=== PATIENT | male | born 1995 | race Two or more races ===

== ENCOUNTER 2022-09-27 10:45 | Inpatient (IN) | payer OTHER ==
[~2022-09-27] VITALS: Ht 170.2 cm; Wt 58.1 kg
[2022-09-27] MEDS ORDERED: IV NS 0.9% 1,000 ML BAG IV ONE (11:30)
[2022-09-27 11:32] LABS: BASOPHILS % (AUTO) 0.2 % (0.0-2.0); EOSINOPHILS % (AUTO) 0.1 % (0.0-6.0); HEMATOCRIT 31 % (39-51); HEMOGLOBIN 10.5 g/dL (13.5-17.5); LYMPHOCYTES # (AUTO) 0.5 K/uL (0.8-4.8); LYMPHOCYTES % (AUTO) 7.5 % (20.0-44.0); MEAN CORPUSCULAR HGB CONC 33 g/dl (31.0-36.0); MEAN CORPUSCULAR VOLUME 73 fL (80-96); MONOCYTES # (AUTO) 0.8 K/uL (0.1-1.30); MONOCYTES % (AUTO) 12.9 % (2.0-12.0); NEUTROPHILS % (AUTO) 79.3 % (43.0-81.0); PLATELET COUNT (AUTO) 288 K/uL (150-450); WHITE BLOOD COUNT (AUTO) 6.2 K/uL (4.3-11.0)
[2022-09-27 11:55] LABS: CALCIUM, SERUM 8.5 mg/dL (8.5-10.1); CARBON DIOXIDE 27 mmol/L (21-32); CHLORIDE 86 mmol/L (98-107); CREATININE 0.9 mg/dL (0.6-1.3); GLUCOSE 120 mg/dL (74-106); POTASSIUM 3.6 mmol/L (3.5-5.1); SODIUM SERUM 121 mmol/L (136-145); UREA NITROGEN, BLOOD 12 mg/dL (7-18)
[2022-09-27 11:57] LABS: BILIRUBIN,URINE NEGATIVE (NEGATIVE); COLOR,URINE YELLOW (YELLOW); LEUKOCYTE ESTERASE ,URINE NEGATIVE (NEGATIVE); NITRITE, URINE NEGATIVE (NEGATIVE); PROTEIN,URINE 1+ mg/dl (NEGATIVE); UGLUCOSE NEGATIVE (NEGATIVE); UROBILINOGEN,URINE 0.2 EU/dL (0.2)
[2022-09-27 12:19] LABS: BACTERIA,URINE Rare /HPF (None Seen); SQUAMOUS EPITHELIAL CELL,UR Few /HPF (None Seen); WBC,URINE 0-2 /HPF (0-3)
[2022-09-27] MEDS ORDERED: CEFTRIAXONE 1GM BAG (ER ONLY) 50 ML IV ONE ×2 (12:27→17:04)
[2022-09-27 12:30] LABS: ALANINE AMINOTRANSFERASE 47 U/L (12-78); ALBUMIN 2.4 g/dL (3.4-5.0); ALKALINE PHOSPHATASE 76 U/L (46-116); ASPARTATE AMINOTRANSFERASE 23 U/L (15-37); BILIRUBIN,DIRECT 0.1 mg/dL (0.0-0.2); BILIRUBIN,TOTAL 0.2 mg/dL (0.2-1.0); LIPASE 55 U/L (73-393); TOTAL PROTEIN, SERUM 7.2 g/dL (6.4-8.2)
[2022-09-27] MEDS ORDERED: CEFTRIAXONE 1 G in IV D5W 50 ML IV ONE (12:30)
[2022-09-27 12:35] LABS: ALCOHOL, BLOOD < 3 mg/dL (0-0)
[2022-09-27] MEDS ORDERED: MAG HYDROX/AL HYDROX/SIMETH 30 ML UDC PO PRN (15:30)
[2022-09-27] MEDS: CEFTRIAXONE 1 G in IV D5W 50 ML IV SCH (15:30)
[2022-09-27] MEDS ORDERED: ONDANSETRON HCL/PF 4 MG/2 ML VIAL IVP PRN (15:30)
[2022-09-27] MEDS ORDERED: Z GUARD REMEDY 4 OZ OINT TP PRN (15:30)
[2022-09-27] MEDS: AZITHROMYCIN 500 MG in IV D5W 250 ML IV SCH (15:30)
[2022-09-27] MEDS ORDERED: ZOLPIDEM TARTRATE 5 MG TABLET PO PRN (15:30)
[2022-09-27] MEDS ORDERED: MAGNESIUM HYDROXIDE 30 ML UDC PO PRN (15:30)
[2022-09-27] MEDS ORDERED: AZITHROMYCIN 500 MG in IV D5W 250 ML IV SCH (17:30)
[2022-09-27] MEDS ORDERED: CEFTRIAXONE 1GM BAG (ER ONLY) 1 GM/50 ML PIGGYBACK IV ONE (17:30)
[2022-09-27 21:15] VITALS: BP 124/72
[2022-09-27] MEDS: IV NS 0.9% 1,000 ML IV PRN (22:22)
[2022-09-28] MEDS: ACETAMINOPHEN 325 MG TABLET PO PRN ×2 (00:04→19:59)
[2022-09-28 00:36] VITALS: BP 98/49
[2022-09-28 04:00] VITALS: BP 106/67
[2022-09-28 06:16] LABS: BASOPHILS % (AUTO) 0.4 % (0.0-2.0); EOSINOPHILS % (AUTO) 0.2 % (0.0-6.0); HEMATOCRIT 35 % (39-51); HEMOGLOBIN 11.1 g/dL (13.5-17.5); LYMPHOCYTES # (AUTO) 0.4 K/uL (0.8-4.8); MEAN CORPUSCULAR HGB CONC 32 g/dl (31.0-36.0); MEAN CORPUSCULAR VOLUME 75 fL (80-96); MONOCYTES # (AUTO) 0.7 K/uL (0.1-1.30); MONOCYTES % (AUTO) 12.7 % (2.0-12.0); NEUTROPHILS # (AUTO) 4.7 K/uL (1.8-8.9); NEUTROPHILS % (AUTO) 79.7 % (43.0-81.0); PLATELET COUNT (AUTO) 290 K/uL (150-450); RED BLOOD CELL COUNT(AUTO) 4.67 MIL/uL (4.5-6.0); WHITE BLOOD COUNT (AUTO) 5.9 K/uL (4.3-11.0)
[2022-09-28 06:58] LABS: CALCIUM, SERUM 8.1 mg/dL (8.5-10.1); CREATININE 0.9 mg/dL (0.6-1.3); MAGNESIUM 2.1 mg/dL (1.8-2.4); POTASSIUM 4.4 mmol/L (3.5-5.1)
[2022-09-28 09:12] VITALS: BP 112/69
[2022-09-28] MEDS: CEFTRIAXONE 1 G in IV D5W 50 ML IV SCH (14:44)
[2022-09-28] MEDS ORDERED: VANCOMYCIN 1 GM in IV D5W 250 ML IV ONE (15:30)
[2022-09-28] MEDS: AZITHROMYCIN 500 MG in IV D5W 250 ML IV SCH (15:41)
[2022-09-28 16:00] VITALS: BP 116/70
[2022-09-28] MEDS: IV NS 0.9% 1,000 ML IV PRN (17:00)
[2022-09-28] MEDS: VANCOMYCIN 1 GM in IV D5W 250 ML IV SCH (17:04)
[2022-09-28 20:00] VITALS: BP 123/73
[2022-09-29 04:00] VITALS: BP 111/64
[2022-09-29 07:42] LABS: CALCIUM, SERUM 7.3 mg/dL (8.5-10.1); CREATININE 0.8 mg/dL (0.6-1.3); POTASSIUM 3.2 mmol/L (3.5-5.1)
[2022-09-29 08:00] VITALS: BP 103/63
[2022-09-29] MEDS: FLUCONAZOLE (100 MG) 100 MG TABLET PO SCH (08:09)
[2022-09-29] MEDS: VANCOMYCIN 1 GM in IV D5W 250 ML IV SCH ×4 (08:12→18:08)
[2022-09-29] MEDS ORDERED: POTASSIUM CHLORIDE 20 MEQ TAB.PRT.SR PO ONE (10:00)
[2022-09-29 16:00] VITALS: BP 114/71
[2022-09-29] MEDS: AZITHROMYCIN 250 MG TABLET PO SCH (16:03)
[2022-09-29] MEDS: ACETAMINOPHEN 325 MG TABLET PO PRN (16:03)
[2022-09-29] MEDS: IV NS 0.9% 1,000 ML IV PRN (16:51)
[2022-09-29] MEDS: CEFTRIAXONE 1 G in IV D5W 50 ML IV SCH (16:54)
[2022-09-30] VITALS: BP 111/70
[2022-09-30] MEDS: VANCOMYCIN 1.25 GM in IV D5W 250 ML IV SCH ×3 (00:29→16:06)
[2022-09-30 05:53] LABS: BASOPHILS # (AUTO) 0.1 K/uL (0.0-0.2); BASOPHILS % (AUTO) 1.2 % (0.0-2.0); HEMATOCRIT 35 % (39-51); HEMOGLOBIN 11.2 g/dL (13.5-17.5); LYMPHOCYTES # (AUTO) 0.4 K/uL (0.8-4.8); MEAN CORPUSCULAR HGB CONC 32 g/dl (31.0-36.0); MEAN CORPUSCULAR VOLUME 76 fL (80-96); MONOCYTES # (AUTO) 0.4 K/uL (0.1-1.30); MONOCYTES % (AUTO) 8.8 % (2.0-12.0); NEUTROPHILS # (AUTO) 4.1 K/uL (1.8-8.9); PLATELET COUNT (AUTO) 275 K/uL (150-450); RED BLOOD CELL COUNT(AUTO) 4.65 MIL/uL (4.5-6.0)
[2022-09-30 06:08] LABS: CALCIUM, SERUM 8.1 mg/dL (8.5-10.1); CREATININE 0.6 mg/dL (0.6-1.3); POTASSIUM 4.4 mmol/L (3.5-5.1)
[2022-09-30] MEDS: FLUCONAZOLE (100 MG) 100 MG TABLET PO SCH (08:07)
[2022-09-30 08:57] VITALS: BP 122/69
[2022-09-30] MEDS ORDERED: IV Sodium Chloride 3% 500 ML 300 ML IV ONE (09:00)
[2022-09-30] MEDS: CEFTRIAXONE 1 G in IV D5W 50 ML IV SCH (14:53)
[2022-09-30 15:31] LABS: POTASSIUM 3.3 mmol/L (3.5-5.1)
[2022-09-30 16:00] VITALS: BP 117/70
[2022-09-30] MEDS: AZITHROMYCIN 250 MG TABLET PO SCH (16:09)
[2022-09-30] MEDS: ACETAMINOPHEN 325 MG TABLET PO PRN (17:00)
[2022-10-01] VITALS: BP 116/64
[2022-10-01] MEDS: VANCOMYCIN 1.25 GM in IV D5W 250 ML IV SCH ×2 (00:11→08:41)
[2022-10-01 05:09] VITALS: BP 123/69
[2022-10-01] MEDS: ACETAMINOPHEN 325 MG TABLET PO PRN ×2 (05:14→22:19)
[2022-10-01 08:00] VITALS: BP 144/72
[2022-10-01 08:37] LABS: CREATININE 0.7 mg/dL (0.6-1.3); POTASSIUM 3.2 mmol/L (3.5-5.1)
[2022-10-01] MEDS: FLUCONAZOLE (100 MG) 100 MG TABLET PO SCH (08:41)
[2022-10-01] MEDS: POTASSIUM CHLORIDE 20 MEQ TAB.PRT.SR PO SCH ×2 (10:49→12:10)
[2022-10-01] MEDS: VANCOMYCIN 1 GM in IV D5W 250 ML IV SCH ×2 (12:11→18:00)
[2022-10-01 14:07] LABS: *HIV-1 RNA BY PCR <20 copies/mL (.)
[2022-10-01] MEDS: AZITHROMYCIN 250 MG TABLET PO SCH (15:24)
[2022-10-01] MEDS: CEFTRIAXONE 1 G in IV D5W 50 ML IV SCH (15:24)
[2022-10-01 16:00] VITALS: BP 100/62
[2022-10-01] MEDS ORDERED: GADOTERATE MEGLUMINE 10 MMOL/20 ML VIAL IV ONE (19:29)
[2022-10-01 20:00] VITALS: BP 113/69
[2022-10-01] MEDS: IV NS 0.9% 1,000 ML IV PRN (20:19)
[2022-10-01] MEDS: PYRAZINAMIDE 500 MG TABLET PO SCH (20:29)
[2022-10-01] MEDS: ISONIAZID (300 MG) 300 MG TABLET PO SCH (20:30)
[2022-10-01] MEDS: PYRIDOXINE HCL 50 MG TABLET PO SCH (20:30)
[2022-10-01] MEDS: ETHAMBUTOL HCL (400 MG) 400 MG TABLET PO SCH (20:30)
[2022-10-01] MEDS: RIFAMPIN 300 MG CAPSULE PO SCH (20:31)
[2022-10-01] MEDS ORDERED: IV Sodium Chloride 3% 500 ML 300 ML IV ONE (22:00)
[2022-10-01] MEDS ORDERED: IV Sodium Chloride 3% 500 ML 500 ML IV ONE (22:26)
[2022-10-02 04:00] VITALS: BP 99/69
[2022-10-02 08:00] VITALS: BP 116/62
[2022-10-02] MEDS: RIFAMPIN 300 MG CAPSULE PO SCH (08:23)
[2022-10-02] MEDS: PYRIDOXINE HCL 50 MG TABLET PO SCH (08:23)
[2022-10-02] MEDS: PYRAZINAMIDE 500 MG TABLET PO SCH (08:24)
[2022-10-02] MEDS: FLUCONAZOLE (100 MG) 100 MG TABLET PO SCH (08:24)
[2022-10-02] MEDS: ISONIAZID (300 MG) 300 MG TABLET PO SCH (08:24)
[2022-10-02] MEDS: ETHAMBUTOL HCL (400 MG) 400 MG TABLET PO SCH (08:25)
[2022-10-02 09:09] LABS: CALCIUM, SERUM 7.9 mg/dL (8.5-10.1); CREATININE 0.7 mg/dL (0.6-1.3); POTASSIUM 3.8 mmol/L (3.5-5.1)
[2022-10-02] MEDS: VANCOMYCIN 1 GM in IV D5W 250 ML IV SCH ×2 (15:27→20:52)
[2022-10-02 16:00] VITALS: BP 119/60
[2022-10-02] MEDS: CEFTRIAXONE 1 G in IV D5W 50 ML IV SCH (16:24)
[2022-10-02] MEDS: AZITHROMYCIN 250 MG TABLET PO SCH (16:38)
[2022-10-02 17:22] LABS: CSF GLUCOSE 20 mg/dL (40-70); CSF PROTEIN 134.48 mg/dL (15-45)
[2022-10-02] MEDS: ACETAMINOPHEN 325 MG TABLET PO PRN (19:12)
[2022-10-02 20:00] VITALS: BP 110/62
[2022-10-02] MEDS: DEXAMETHASONE SOD PHOSPHATE 4 MG/ML VIAL IV SCH (20:53)
[2022-10-02] MEDS: PANTOPRAZOLE 40 MG TABLET.DR PO SCH (20:53)
[2022-10-02] MEDS: ACYCLOVIR IV 500 MG in IV D5W 100 ML IV SCH (20:53)
[2022-10-02] MEDS ORDERED: CEFTRIAXONE 2 G in IV D5W 50 ML IV SCH (21:00)
[2022-10-02] MEDS: CEFTRIAXONE 2 G in IV D5W 100 ML IV SCH (22:18)
[2022-10-02] MEDS ORDERED: IV NS 0.9% 1,000 ML IV ONE (22:30)
[2022-10-02] MEDS: IV NS 0.9% 1,000 ML IV PRN (22:44)
[2022-10-03] MEDS: VANCOMYCIN 1 GM in IV D5W 250 ML IV SCH ×2 (02:19→07:44)
[2022-10-03 04:00] VITALS: BP 119/61
[2022-10-03] MEDS: ACYCLOVIR IV 500 MG in IV D5W 100 ML IV SCH ×3 (04:28→21:55)
[2022-10-03 06:43] LABS: CALCIUM, SERUM 7.9 mg/dL (8.5-10.1); CREATININE 0.6 mg/dL (0.6-1.3); POTASSIUM 3.6 mmol/L (3.5-5.1)
[2022-10-03 08:00] VITALS: BP 93/53
[2022-10-03] MEDS: FLUCONAZOLE (100 MG) 100 MG TABLET PO SCH (08:24)
[2022-10-03] MEDS: ISONIAZID (300 MG) 300 MG TABLET PO SCH (08:24)
[2022-10-03] MEDS: DEXAMETHASONE SOD PHOSPHATE 4 MG/ML VIAL IV SCH (08:24)
[2022-10-03] MEDS: ENSURE ENLIVE 237 ML LIQUID (VANILLA) PO SCH (08:25)
[2022-10-03] MEDS: PANTOPRAZOLE 40 MG TABLET.DR PO SCH (08:25)
[2022-10-03] MEDS: ETHAMBUTOL HCL (400 MG) 400 MG TABLET PO SCH (08:25)
[2022-10-03] MEDS: RIFAMPIN 300 MG CAPSULE PO SCH (08:26)
[2022-10-03] MEDS: PYRIDOXINE HCL 50 MG TABLET PO SCH (08:26)
[2022-10-03 08:36] LABS: BASOPHILS % (AUTO) 0.2 % (0.0-2.0); HEMATOCRIT 38 % (39-51); HEMOGLOBIN 11.8 g/dL (13.5-17.5); LYMPHOCYTES # (AUTO) 0.3 K/uL (0.8-4.8); LYMPHOCYTES % (AUTO) 10.4 % (20.0-44.0); MEAN CORPUSCULAR HGB CONC 31 g/dl (31.0-36.0); MEAN CORPUSCULAR VOLUME 77 fL (80-96); MONOCYTES # (AUTO) 0.2 K/uL (0.1-1.30); MONOCYTES % (AUTO) 5.7 % (2.0-12.0); NEUTROPHILS # (AUTO) 2.5 K/uL (1.8-8.9); NEUTROPHILS % (AUTO) 83.7 % (43.0-81.0); PLATELET COUNT (AUTO) 246 K/uL (150-450); RED BLOOD CELL COUNT(AUTO) 4.86 MIL/uL (4.5-6.0)
[2022-10-03] MEDS: PYRAZINAMIDE 500 MG TABLET PO SCH (08:56)
[2022-10-03] MEDS: ACETAMINOPHEN 325 MG TABLET PO PRN ×2 (09:21→15:27)
[2022-10-03] MEDS: IV NS 0.9% 1,000 ML IV PRN (09:21)
[2022-10-03] MEDS: CEFTRIAXONE 2 G in IV D5W 100 ML IV SCH ×2 (09:29→22:56)
[2022-10-03] MEDS: VANCOMYCIN 1.25 GM in IV D5W 250 ML IV SCH ×2 (12:39→20:03)
[2022-10-03 16:00] VITALS: BP 84/51
[2022-10-03 20:00] VITALS: BP 102/57
[2022-10-04] MEDS: VANCOMYCIN 1.25 GM in IV D5W 250 ML IV SCH ×3 (03:08→19:35)
[2022-10-04 04:00] VITALS: BP 94/56
[2022-10-04] MEDS: ACYCLOVIR IV 500 MG in IV D5W 100 ML IV SCH ×3 (05:32→21:36)
[2022-10-04] MEDS: IV NS 0.9% 1,000 ML IV PRN (06:22)
[2022-10-04 07:11] LABS: ALBUMIN 1.7 g/dL (3.4-5.0); BILIRUBIN,DIRECT 0.1 mg/dL (0.0-0.2); BILIRUBIN,TOTAL 0.2 mg/dL (0.2-1.0); TOTAL PROTEIN, SERUM 5.4 g/dL (6.4-8.2)
[2022-10-04 07:43] LABS: CALCIUM, SERUM 7.9 mg/dL (8.5-10.1); CREATININE 0.7 mg/dL (0.6-1.3); POTASSIUM 3.3 mmol/L (3.5-5.1)
[2022-10-04 08:00] VITALS: BP 83/50
[2022-10-04 08:17] LABS: URIC ACID 5.3 mg/dL (2.6-7.2)
[2022-10-04] MEDS: PANTOPRAZOLE 40 MG TABLET.DR PO SCH (09:31)
[2022-10-04] MEDS: ETHAMBUTOL HCL (400 MG) 400 MG TABLET PO SCH (09:31)
[2022-10-04] MEDS: PYRIDOXINE HCL 50 MG TABLET PO SCH (09:31)
[2022-10-04] MEDS: FLUCONAZOLE (100 MG) 100 MG TABLET PO SCH (09:31)
[2022-10-04] MEDS: ISONIAZID (300 MG) 300 MG TABLET PO SCH (09:31)
[2022-10-04] MEDS: RIFAMPIN 300 MG CAPSULE PO SCH (09:33)
[2022-10-04] MEDS: DEXAMETHASONE SOD PHOSPHATE 4 MG/ML VIAL IV SCH (09:36)
[2022-10-04] MEDS: CEFTRIAXONE 2 G in IV D5W 100 ML IV SCH ×2 (09:38→22:42)
[2022-10-04] MEDS: PYRAZINAMIDE 500 MG TABLET PO SCH (09:38)
[2022-10-04] MEDS: ENSURE ENLIVE 237 ML LIQUID (VANILLA) PO SCH (09:57)
[2022-10-04] MEDS ORDERED: POTASSIUM CHLORIDE 20 MEQ TAB.PRT.SR PO SCH (10:00)
[2022-10-04 16:00] VITALS: BP 90/52
[2022-10-04] MEDS: CIPROFLOXACIN 0.3% OT SCH (16:59)
[2022-10-04 20:00] VITALS: BP 101/55
[2022-10-05] MEDS: IV NS 0.9% 1,000 ML IV PRN ×2 (00:13→20:12)
[2022-10-05] MEDS: VANCOMYCIN 1.25 GM in IV D5W 250 ML IV SCH ×3 (03:36→20:02)
[2022-10-05 04:00] VITALS: BP 105/50
[2022-10-05] MEDS: ACYCLOVIR IV 500 MG in IV D5W 100 ML IV SCH ×3 (05:32→21:22)
[2022-10-05 06:00] LABS: EOSINOPHILS % (AUTO) 0.1 % (0.0-6.0); HEMATOCRIT 32 % (39-51); HEMOGLOBIN 10.5 g/dL (13.5-17.5); LYMPHOCYTES # (AUTO) 0.5 K/uL (0.8-4.8); LYMPHOCYTES % (AUTO) 7.4 % (20.0-44.0); MEAN CORPUSCULAR HGB CONC 33 g/dl (31.0-36.0); MEAN CORPUSCULAR VOLUME 75 fL (80-96); MONOCYTES % (AUTO) 8.7 % (2.0-12.0); NEUTROPHILS # (AUTO) 5.9 K/uL (1.8-8.9); NEUTROPHILS % (AUTO) 83.8 % (43.0-81.0); PLATELET COUNT (AUTO) 258 K/uL (150-450); RED BLOOD CELL COUNT(AUTO) 4.31 MIL/uL (4.5-6.0); WHITE BLOOD COUNT (AUTO) 7.1 K/uL (4.3-11.0)
[2022-10-05 06:01] LABS: MONOCYTES # (AUTO) 0.6 K/uL (0.1-1.30)
[2022-10-05 06:26] LABS: ALBUMIN 1.7 g/dL (3.4-5.0); BILIRUBIN,TOTAL 0.2 mg/dL (0.2-1.0); CREATININE 0.7 mg/dL (0.6-1.3); POTASSIUM 3.4 mmol/L (3.5-5.1); TOTAL PROTEIN, SERUM 5.4 g/dL (6.4-8.2)
[2022-10-05 08:00] VITALS: BP 99/59
[2022-10-05] MEDS ORDERED: POTASSIUM CHLORIDE 20 MEQ TAB.PRT.SR PO ONE (08:00)
[2022-10-05 08:39] LABS: IRON, SERUM 85 ug/dl (50-175); TOTAL IRON BINDING CAPACITY 142 ug/dl (250-450)
[2022-10-05 08:53] LABS: FERRITIN 579 ng/mL (8-388)
[2022-10-05] MEDS: ENSURE ENLIVE 237 ML LIQUID (VANILLA) PO SCH (09:05)
[2022-10-05] MEDS: CIPROFLOXACIN 0.3% OT SCH ×2 (09:05→16:11)
[2022-10-05] MEDS: PANTOPRAZOLE 40 MG TABLET.DR PO SCH (09:11)
[2022-10-05] MEDS: PYRAZINAMIDE 500 MG TABLET PO SCH (09:11)
[2022-10-05] MEDS: FLUCONAZOLE (100 MG) 100 MG TABLET PO SCH (09:11)
[2022-10-05] MEDS: ETHAMBUTOL HCL (400 MG) 400 MG TABLET PO SCH (09:11)
[2022-10-05] MEDS: ISONIAZID (300 MG) 300 MG TABLET PO SCH (09:11)
[2022-10-05] MEDS: RIFAMPIN 300 MG CAPSULE PO SCH (09:11)
[2022-10-05] MEDS: PYRIDOXINE HCL 50 MG TABLET PO SCH (09:12)
[2022-10-05] MEDS: CEFTRIAXONE 2 G in IV D5W 100 ML IV SCH ×2 (09:15→22:19)
[2022-10-05] MEDS: DEXAMETHASONE SOD PHOSPHATE 4 MG/ML VIAL IV SCH (09:16)
[2022-10-05 16:00] VITALS: BP 97/55
[2022-10-05 20:00] VITALS: BP 99/54
[2022-10-06 04:00] VITALS: BP 108/57
[2022-10-06] MEDS: VANCOMYCIN 1.25 GM in IV D5W 250 ML IV SCH ×3 (04:12→19:04)
[2022-10-06] MEDS: ACYCLOVIR IV 500 MG in IV D5W 100 ML IV SCH ×3 (05:49→20:42)
[2022-10-06 06:58] LABS: CALCIUM, SERUM 7.6 mg/dL (8.5-10.1); CREATININE 0.6 mg/dL (0.6-1.3); POTASSIUM 3.5 mmol/L (3.5-5.1)
[2022-10-06] MEDS: PANTOPRAZOLE 40 MG TABLET.DR PO SCH (07:46)
[2022-10-06 08:00] VITALS: BP 111/61
[2022-10-06] MEDS: PYRAZINAMIDE 500 MG TABLET PO SCH (08:24)
[2022-10-06] MEDS: FLUCONAZOLE (100 MG) 100 MG TABLET PO SCH (08:25)
[2022-10-06] MEDS: PYRIDOXINE HCL 50 MG TABLET PO SCH (08:25)
[2022-10-06] MEDS: ISONIAZID (300 MG) 300 MG TABLET PO SCH (08:25)
[2022-10-06] MEDS: RIFAMPIN 300 MG CAPSULE PO SCH (08:25)
[2022-10-06] MEDS: ETHAMBUTOL HCL (400 MG) 400 MG TABLET PO SCH (08:25)
[2022-10-06] MEDS: DEXAMETHASONE SOD PHOSPHATE 4 MG/ML VIAL IV SCH (08:26)
[2022-10-06] MEDS: ENSURE ENLIVE 237 ML LIQUID (VANILLA) PO SCH (08:26)
[2022-10-06] MEDS: CIPROFLOXACIN 0.3% OT SCH ×2 (09:07→16:35)
[2022-10-06] MEDS: CEFTRIAXONE 2 G in IV D5W 100 ML IV SCH ×2 (09:28→22:35)
[2022-10-06] MEDS: IV NS 0.9% 1,000 ML IV PRN (09:28)
[2022-10-06 16:00] VITALS: BP 111/61
[2022-10-06 20:00] VITALS: BP 99/61
[2022-10-07 04:00] VITALS: BP 109/69
[2022-10-07] MEDS: VANCOMYCIN 1.25 GM in IV D5W 250 ML IV SCH ×3 (04:31→20:20)
[2022-10-07] MEDS: IV NS 0.9% 1,000 ML IV PRN ×2 (04:35→19:40)
[2022-10-07] MEDS: ACYCLOVIR IV 500 MG in IV D5W 100 ML IV SCH ×3 (05:38→21:20)
[2022-10-07 07:03] LABS: EOSINOPHILS % (AUTO) 0.1 % (0.0-6.0); HEMATOCRIT 33 % (39-51); HEMOGLOBIN 10.5 g/dL (13.5-17.5); LYMPHOCYTES # (AUTO) 0.6 K/uL (0.8-4.8); MEAN CORPUSCULAR HGB CONC 32 g/dl (31.0-36.0); MEAN CORPUSCULAR VOLUME 76 fL (80-96); MONOCYTES # (AUTO) 0.8 K/uL (0.1-1.30); MONOCYTES % (AUTO) 9.6 % (2.0-12.0); NEUTROPHILS # (AUTO) 6.6 K/uL (1.8-8.9); NEUTROPHILS % (AUTO) 82.3 % (43.0-81.0); PLATELET COUNT (AUTO) 312 K/uL (150-450); WHITE BLOOD COUNT (AUTO) 8.1 K/uL (4.3-11.0)
[2022-10-07 07:06] LABS: CALCIUM, SERUM 7.9 mg/dL (8.5-10.1); CREATININE 0.7 mg/dL (0.6-1.3); POTASSIUM 3.2 mmol/L (3.5-5.1)
[2022-10-07] MEDS: PANTOPRAZOLE 40 MG TABLET.DR PO SCH (07:34)
[2022-10-07 08:00] VITALS: BP 111/66
[2022-10-07] MEDS: ISONIAZID (300 MG) 300 MG TABLET PO SCH (08:06)
[2022-10-07] MEDS: PYRAZINAMIDE 500 MG TABLET PO SCH (08:06)
[2022-10-07] MEDS: RIFAMPIN 300 MG CAPSULE PO SCH (08:06)
[2022-10-07] MEDS: PYRIDOXINE HCL 50 MG TABLET PO SCH (08:07)
[2022-10-07] MEDS: ETHAMBUTOL HCL (400 MG) 400 MG TABLET PO SCH (08:07)
[2022-10-07] MEDS: DEXAMETHASONE SOD PHOSPHATE 4 MG/ML VIAL IV SCH (08:08)
[2022-10-07] MEDS: FLUCONAZOLE (100 MG) 100 MG TABLET PO SCH (08:10)
[2022-10-07] MEDS: ENSURE ENLIVE 237 ML LIQUID (VANILLA) PO SCH (08:10)
[2022-10-07] MEDS: CIPROFLOXACIN 0.3% OT SCH ×2 (08:27→16:03)
[2022-10-07] MEDS ORDERED: POTASSIUM CHLORIDE 20 MEQ TAB.PRT.SR PO ONE (09:00)
[2022-10-07] MEDS: CEFTRIAXONE 2 G in IV D5W 100 ML IV SCH ×2 (09:41→22:12)
[2022-10-07 16:00] VITALS: BP 101/67
[2022-10-07 20:00] VITALS: BP 124/51
[2022-10-08] MEDS: VANCOMYCIN 1.25 GM in IV D5W 250 ML IV SCH ×2 (03:52→12:00)
[2022-10-08] MEDS: ACYCLOVIR IV 500 MG in IV D5W 100 ML IV SCH (05:05)
[2022-10-08] MEDS: IV NS 0.9% 1,000 ML IV PRN ×2 (05:06→16:58)
[2022-10-08 06:58] LABS: CREATININE 0.6 mg/dL (0.6-1.3); POTASSIUM 3.4 mmol/L (3.5-5.1)
[2022-10-08 08:00] VITALS: BP 119/70
[2022-10-08] MEDS: PYRAZINAMIDE 500 MG TABLET PO SCH (08:24)
[2022-10-08] MEDS: CIPROFLOXACIN 0.3% OT SCH ×2 (08:24→17:46)
[2022-10-08] MEDS: PYRIDOXINE HCL 50 MG TABLET PO SCH (08:25)
[2022-10-08] MEDS: ETHAMBUTOL HCL (400 MG) 400 MG TABLET PO SCH (08:25)
[2022-10-08] MEDS: RIFAMPIN 300 MG CAPSULE PO SCH (08:25)
[2022-10-08] MEDS: ISONIAZID (300 MG) 300 MG TABLET PO SCH (08:25)
[2022-10-08] MEDS: PANTOPRAZOLE 40 MG TABLET.DR PO SCH (08:25)
[2022-10-08] MEDS: FLUCONAZOLE (100 MG) 100 MG TABLET PO SCH (08:26)
[2022-10-08] MEDS: DEXAMETHASONE SOD PHOSPHATE 4 MG/ML VIAL IV SCH (08:26)
[2022-10-08] MEDS: ENSURE ENLIVE 237 ML LIQUID (VANILLA) PO SCH (09:01)
[2022-10-08] MEDS ORDERED: POTASSIUM CHLORIDE 20 MEQ TAB.PRT.SR PO ONE (10:00)
[2022-10-08] MEDS: CEFTRIAXONE 2 G in IV D5W 100 ML IV SCH (10:48)
[2022-10-08] MEDS ORDERED: VANCOMYCIN 0.75 GM in IV D5W 250 ML IV SCH (15:00)
[2022-10-08 16:00] VITALS: BP 105/61
[2022-10-08 20:00] VITALS: BP 105/58
[2022-10-09 04:00] VITALS: BP 114/66
[2022-10-09] MEDS: IV NS 0.9% 1,000 ML IV PRN (05:14)
[2022-10-09 06:20] LABS: BASOPHILS % (AUTO) 0.4 % (0.0-2.0); EOSINOPHILS % (AUTO) 0.4 % (0.0-6.0); HEMATOCRIT 40 % (39-51); HEMOGLOBIN 12.5 g/dL (13.5-17.5); LYMPHOCYTES # (AUTO) 1.9 K/uL (0.8-4.8); LYMPHOCYTES % (AUTO) 18.4 % (20.0-44.0); MEAN CORPUSCULAR HGB CONC 31 g/dl (31.0-36.0); MEAN CORPUSCULAR VOLUME 78 fL (80-96); MONOCYTES # (AUTO) 1.5 K/uL (0.1-1.30); MONOCYTES % (AUTO) 14.5 % (2.0-12.0); NEUTROPHILS # (AUTO) 6.7 K/uL (1.8-8.9); NEUTROPHILS % (AUTO) 66.3 % (43.0-81.0); PLATELET COUNT (AUTO) 371 K/uL (150-450); RED BLOOD CELL COUNT(AUTO) 5.14 MIL/uL (4.5-6.0); WHITE BLOOD COUNT (AUTO) 10.1 K/uL (4.3-11.0)
[2022-10-09 06:32] LABS: CALCIUM, SERUM 8.7 mg/dL (8.5-10.1); CREATININE 0.7 mg/dL (0.6-1.3); POTASSIUM 3.9 mmol/L (3.5-5.1)
[2022-10-09] MEDS: PANTOPRAZOLE 40 MG TABLET.DR PO SCH (07:40)
[2022-10-09 08:00] VITALS: BP 100/62
[2022-10-09] MEDS: DEXAMETHASONE SOD PHOSPHATE 4 MG/ML VIAL IV SCH (08:44)
[2022-10-09] MEDS: ETHAMBUTOL HCL (400 MG) 400 MG TABLET PO SCH (08:44)
[2022-10-09] MEDS: PYRAZINAMIDE 500 MG TABLET PO SCH (08:44)
[2022-10-09] MEDS: ISONIAZID (300 MG) 300 MG TABLET PO SCH (08:44)
[2022-10-09] MEDS: ENSURE ENLIVE 237 ML LIQUID (VANILLA) PO SCH (08:45)
[2022-10-09] MEDS: FLUCONAZOLE (100 MG) 100 MG TABLET PO SCH (08:45)
[2022-10-09] MEDS: RIFAMPIN 300 MG CAPSULE PO SCH (08:45)
[2022-10-09] MEDS: PYRIDOXINE HCL 50 MG TABLET PO SCH (08:45)
[2022-10-09] MEDS: CIPROFLOXACIN 0.3% OT SCH ×2 (08:46→16:29)
[2022-10-09 16:00] VITALS: BP 105/63
[2022-10-09 20:00] VITALS: BP 116/67
[2022-10-10 04:00] VITALS: BP 116/67
[2022-10-10] MEDS: PANTOPRAZOLE 40 MG TABLET.DR PO SCH (07:23)
[2022-10-10 07:29] LABS: CALCIUM, SERUM 8.1 mg/dL (8.5-10.1); CREATININE 0.7 mg/dL (0.6-1.3); POTASSIUM 3.8 mmol/L (3.5-5.1)
[2022-10-10 08:00] VITALS: BP 114/66
[2022-10-10] MEDS: ISONIAZID (300 MG) 300 MG TABLET PO SCH (08:56)
[2022-10-10] MEDS: FLUCONAZOLE (100 MG) 100 MG TABLET PO SCH (08:56)
[2022-10-10] MEDS: PYRAZINAMIDE 500 MG TABLET PO SCH (08:56)
[2022-10-10] MEDS: ETHAMBUTOL HCL (400 MG) 400 MG TABLET PO SCH (08:57)
[2022-10-10] MEDS: PYRIDOXINE HCL 50 MG TABLET PO SCH (08:57)
[2022-10-10] MEDS: RIFAMPIN 300 MG CAPSULE PO SCH (08:57)
[2022-10-10] MEDS: DEXAMETHASONE SOD PHOSPHATE 4 MG/ML VIAL IV SCH (08:58)
[2022-10-10] MEDS: ENSURE ENLIVE 237 ML LIQUID (VANILLA) PO SCH (08:58)
[2022-10-10] MEDS: CIPROFLOXACIN 0.3% OT SCH ×2 (08:58→16:44)
[2022-10-10 16:00] VITALS: BP 100/62
[2022-10-10 20:00] VITALS: BP 100/62
[2022-10-11 04:00] VITALS: BP 125/70
[2022-10-11 08:00] VITALS: BP 106/67
[2022-10-11] MEDS: FLUCONAZOLE (100 MG) 100 MG TABLET PO SCH (08:08)
[2022-10-11] MEDS: RIFAMPIN 300 MG CAPSULE PO SCH (08:08)
[2022-10-11] MEDS: PYRIDOXINE HCL 50 MG TABLET PO SCH (08:08)
[2022-10-11] MEDS: PYRAZINAMIDE 500 MG TABLET PO SCH (08:08)
[2022-10-11] MEDS: ETHAMBUTOL HCL (400 MG) 400 MG TABLET PO SCH (08:08)
[2022-10-11] MEDS: ISONIAZID (300 MG) 300 MG TABLET PO SCH (08:08)
[2022-10-11] MEDS: PANTOPRAZOLE 40 MG TABLET.DR PO SCH (08:08)
[2022-10-11] MEDS: IV NS 0.9% 1,000 ML IV PRN ×2 (08:09→15:45)
[2022-10-11] MEDS: CIPROFLOXACIN 0.3% OT SCH ×2 (08:09→16:00)
[2022-10-11] MEDS: ENSURE ENLIVE 237 ML LIQUID (VANILLA) PO SCH (08:19)
[2022-10-11] MEDS: DEXAMETHASONE SOD PHOSPHATE 4 MG/ML VIAL IV SCH (08:20)
[2022-10-11 08:36] LABS: BILIRUBIN,DIRECT 0.1 mg/dL (0.0-0.2); BILIRUBIN,TOTAL 0.3 mg/dL (0.2-1.0); TOTAL PROTEIN, SERUM 5.6 g/dL (6.4-8.2)
[2022-10-11 09:11] LABS: CALCIUM, SERUM 8.3 mg/dL (8.5-10.1); CREATININE 0.8 mg/dL (0.6-1.3); POTASSIUM 3.6 mmol/L (3.5-5.1)
[2022-10-11 16:00] VITALS: BP 103/62
[2022-10-11 20:00] VITALS: BP 105/60
[2022-10-12] MEDS: IV NS 0.9% 1,000 ML IV PRN ×3 (02:00→17:37)
[2022-10-12 04:00] VITALS: BP 109/73
[2022-10-12 07:11] LABS: CALCIUM, SERUM 8.7 mg/dL (8.5-10.1); CREATININE 0.6 mg/dL (0.6-1.3); POTASSIUM 4.2 mmol/L (3.5-5.1)
[2022-10-12 08:00] VITALS: BP 116/64
[2022-10-12] MEDS: PYRIDOXINE HCL 50 MG TABLET PO SCH (08:06)
[2022-10-12] MEDS: ETHAMBUTOL HCL (400 MG) 400 MG TABLET PO SCH (08:06)
[2022-10-12] MEDS: ISONIAZID (300 MG) 300 MG TABLET PO SCH (08:07)
[2022-10-12] MEDS: FLUCONAZOLE (100 MG) 100 MG TABLET PO SCH (08:07)
[2022-10-12] MEDS: PANTOPRAZOLE 40 MG TABLET.DR PO SCH (08:07)
[2022-10-12] MEDS: RIFAMPIN 300 MG CAPSULE PO SCH (08:07)
[2022-10-12] MEDS: PYRAZINAMIDE 500 MG TABLET PO SCH (08:07)
[2022-10-12] MEDS: ENSURE ENLIVE 237 ML LIQUID (VANILLA) PO SCH ×3 (08:08→17:02)
[2022-10-12] MEDS: CIPROFLOXACIN 0.3% OT SCH ×2 (08:08→16:10)
[2022-10-12] MEDS: DEXAMETHASONE SOD PHOSPHATE 4 MG/ML VIAL IV SCH (08:10)
[2022-10-12 16:00] VITALS: BP 102/46
[2022-10-12 20:00] VITALS: BP 102/48
[2022-10-12] MEDS ORDERED: DOSING PER PHARMACY-AMIKACI IV XX PRN (20:30)
[2022-10-12] MEDS: LINEZOLID 600 MG TABLET PO SCH (20:56)
[2022-10-12] MEDS: LEVOFLOXACIN (250MG) 250 MG TABLET PO SCH (20:56)
[2022-10-12] MEDS: AMIKACIN 750 MG in IV D5W 100 ML IV SCH (22:01)
[2022-10-13 04:00] VITALS: BP 104/58
[2022-10-13 06:48] LABS: CALCIUM, SERUM 8.5 mg/dL (8.5-10.1); CREATININE 0.7 mg/dL (0.6-1.3); POTASSIUM 4.2 mmol/L (3.5-5.1)
[2022-10-13 08:00] VITALS: BP 105/57
[2022-10-13] MEDS: PANTOPRAZOLE 40 MG TABLET.DR PO SCH (08:07)
[2022-10-13] MEDS: ETHAMBUTOL HCL (400 MG) 400 MG TABLET PO SCH (08:07)
[2022-10-13] MEDS: CIPROFLOXACIN 0.3% OT SCH ×2 (08:08→16:39)
[2022-10-13] MEDS: ENSURE ENLIVE 237 ML LIQUID (VANILLA) PO SCH ×2 (08:08→17:06)
[2022-10-13] MEDS: PYRIDOXINE HCL 50 MG TABLET PO SCH (08:08)
[2022-10-13] MEDS: DEXAMETHASONE SOD PHOSPHATE 4 MG/ML VIAL IV SCH (08:10)
[2022-10-13] MEDS: IV NS 0.9% 1,000 ML IV PRN (08:26)
[2022-10-13 16:00] VITALS: BP 108/75
[2022-10-13 20:00] VITALS: BP 109/64
[2022-10-13] MEDS: LEVOFLOXACIN (250MG) 250 MG TABLET PO SCH (20:57)
[2022-10-13] MEDS: LINEZOLID 600 MG TABLET PO SCH (20:59)
[2022-10-13] MEDS: AMIKACIN 750 MG in IV D5W 100 ML IV SCH (22:23)
[2022-10-14 04:00] VITALS: BP 106/64
[2022-10-14 07:21] LABS: BASOPHILS % (AUTO) 0.4 % (0.0-2.0); EOSINOPHILS % (AUTO) 0.8 % (0.0-6.0); HEMATOCRIT 33 % (39-51); HEMOGLOBIN 10.9 g/dL (13.5-17.5); LYMPHOCYTES # (AUTO) 0.8 K/uL (0.8-4.8); LYMPHOCYTES % (AUTO) 10.1 % (20.0-44.0); MEAN CORPUSCULAR HGB CONC 33 g/dl (31.0-36.0); MEAN CORPUSCULAR VOLUME 79 fL (80-96); MONOCYTES # (AUTO) 0.7 K/uL (0.1-1.30); MONOCYTES % (AUTO) 9.6 % (2.0-12.0); NEUTROPHILS # (AUTO) 5.9 K/uL (1.8-8.9); NEUTROPHILS % (AUTO) 79.1 % (43.0-81.0); PLATELET COUNT (AUTO) 242 K/uL (150-450); RED BLOOD CELL COUNT(AUTO) 4.19 MIL/uL (4.5-6.0); WHITE BLOOD COUNT (AUTO) 7.5 K/uL (4.3-11.0)
[2022-10-14 07:35] LABS: ALBUMIN 2.1 g/dL (3.4-5.0); BILIRUBIN,DIRECT 0.1 mg/dL (0.0-0.2); BILIRUBIN,TOTAL 0.1 mg/dL (0.2-1.0); CALCIUM, SERUM 8.6 mg/dL (8.5-10.1); CREATININE 0.7 mg/dL (0.6-1.3); POTASSIUM 3.9 mmol/L (3.5-5.1); TOTAL PROTEIN, SERUM 5.6 g/dL (6.4-8.2)
[2022-10-14] MEDS: ENSURE ENLIVE 237 ML LIQUID (VANILLA) PO SCH ×2 (07:42→17:00)
[2022-10-14] MEDS: PANTOPRAZOLE 40 MG TABLET.DR PO SCH (07:51)
[2022-10-14 08:00] VITALS: BP 109/70
[2022-10-14] MEDS: DEXAMETHASONE SOD PHOSPHATE 4 MG/ML VIAL IV SCH (08:05)
[2022-10-14] MEDS: CIPROFLOXACIN 0.3% OT SCH ×2 (09:30→17:00)
[2022-10-14] MEDS: PYRIDOXINE HCL 50 MG TABLET PO SCH (10:25)
[2022-10-14] MEDS: ETHAMBUTOL HCL (400 MG) 400 MG TABLET PO SCH (10:25)
[2022-10-14] MEDS: IV NS 0.9% 1,000 ML IV PRN ×2 (11:13→21:30)
[2022-10-14 16:00] VITALS: BP 107/63
[2022-10-14 20:00] VITALS: BP 102/56
[2022-10-14] MEDS: LEVOFLOXACIN (250MG) 250 MG TABLET PO SCH (21:09)
[2022-10-14] MEDS: LINEZOLID 600 MG TABLET PO SCH (21:10)
[2022-10-14] MEDS: AMIKACIN 750 MG in IV D5W 100 ML IV SCH (21:11)
[2022-10-15 04:00] VITALS: BP 101/65
[2022-10-15] MEDS: IV NS 0.9% 1,000 ML IV PRN ×2 (05:27→15:45)
[2022-10-15] MEDS: ENSURE ENLIVE 237 ML LIQUID (VANILLA) PO SCH ×2 (07:42→17:14)
[2022-10-15] MEDS: PANTOPRAZOLE 40 MG TABLET.DR PO SCH (07:48)
[2022-10-15] MEDS: PYRIDOXINE HCL 50 MG TABLET PO SCH (07:49)
[2022-10-15] MEDS: DEXAMETHASONE SOD PHOSPHATE 4 MG/ML VIAL IV SCH (07:49)
[2022-10-15] MEDS: ETHAMBUTOL HCL (400 MG) 400 MG TABLET PO SCH (07:49)
[2022-10-15] MEDS: CIPROFLOXACIN 0.3% OT SCH ×2 (07:50→17:14)
[2022-10-15 08:00] VITALS: BP 108/65
[2022-10-15 16:00] VITALS: BP 107/55
[2022-10-15 20:00] VITALS: BP 105/63
[2022-10-15] MEDS: LINEZOLID 600 MG TABLET PO SCH (20:38)
[2022-10-15] MEDS: LEVOFLOXACIN (250MG) 250 MG TABLET PO SCH (20:38)
[2022-10-15] MEDS: AMIKACIN 750 MG in IV D5W 100 ML IV SCH (21:27)
[2022-10-16] MEDS: IV NS 0.9% 1,000 ML IV PRN ×2 (01:03→09:46)
[2022-10-16 04:00] VITALS: BP 105/64
[2022-10-16] MEDS: ENSURE ENLIVE 237 ML LIQUID (VANILLA) PO SCH ×2 (07:44→16:04)
[2022-10-16] MEDS: PANTOPRAZOLE 40 MG TABLET.DR PO SCH (07:44)
[2022-10-16 08:00] VITALS: BP 110/72
[2022-10-16] MEDS: CIPROFLOXACIN 0.3% OT SCH ×2 (08:49→16:04)
[2022-10-16] MEDS: PYRIDOXINE HCL 50 MG TABLET PO SCH (09:02)
[2022-10-16] MEDS: ETHAMBUTOL HCL (400 MG) 400 MG TABLET PO SCH (09:02)
[2022-10-16] MEDS: DEXAMETHASONE SOD PHOSPHATE 4 MG/ML VIAL IV SCH (09:03)
[2022-10-16 12:39] LABS: CREATININE 0.8 mg/dL (0.6-1.3); POTASSIUM 4.5 mmol/L (3.5-5.1)
[2022-10-16 12:56] LABS: CALCIUM, SERUM 8.5 mg/dL (8.5-10.1)
[2022-10-16 16:00] VITALS: BP 110/81
[2022-10-16 20:00] VITALS: BP 108/83
[2022-10-16] MEDS: LEVOFLOXACIN (250MG) 250 MG TABLET PO SCH (21:14)
[2022-10-16] MEDS: LINEZOLID 600 MG TABLET PO SCH (21:14)
[2022-10-17] MEDS: AMIKACIN 750 MG in IV D5W 100 ML IV SCH ×2 (01:00→22:22)
[2022-10-17 04:00] VITALS: BP 110/60
[2022-10-17 07:27] LABS: CALCIUM, SERUM 8.4 mg/dL (8.5-10.1); CREATININE 0.7 mg/dL (0.6-1.3)
[2022-10-17 08:00] VITALS: BP 116/69
[2022-10-17] MEDS: ENSURE ENLIVE 237 ML LIQUID (VANILLA) PO SCH ×2 (08:19→17:17)
[2022-10-17] MEDS: PANTOPRAZOLE 40 MG TABLET.DR PO SCH (08:19)
[2022-10-17] MEDS: DEXAMETHASONE SOD PHOSPHATE 4 MG/ML VIAL IV SCH (08:19)
[2022-10-17] MEDS: PYRIDOXINE HCL 50 MG TABLET PO SCH (08:22)
[2022-10-17] MEDS: ETHAMBUTOL HCL (400 MG) 400 MG TABLET PO SCH (08:22)
[2022-10-17] MEDS: CIPROFLOXACIN 0.3% OT SCH ×2 (08:23→17:17)
[2022-10-17 16:00] VITALS: BP 119/68
[2022-10-17 20:00] VITALS: BP 106/66
[2022-10-17] MEDS: LINEZOLID 600 MG TABLET PO SCH (21:07)
[2022-10-17] MEDS: LEVOFLOXACIN (250MG) 250 MG TABLET PO SCH (21:08)
[2022-10-18 04:00] VITALS: BP 106/66
[2022-10-18 06:57] LABS: CALCIUM, SERUM 8.6 mg/dL (8.5-10.1); CREATININE 0.7 mg/dL (0.6-1.3); POTASSIUM 4.2 mmol/L (3.5-5.1)
[2022-10-18 08:00] VITALS: BP 110/69
[2022-10-18] MEDS: ETHAMBUTOL HCL (400 MG) 400 MG TABLET PO SCH (08:06)
[2022-10-18] MEDS: PANTOPRAZOLE 40 MG TABLET.DR PO SCH (08:06)
[2022-10-18] MEDS: PYRIDOXINE HCL 50 MG TABLET PO SCH (08:06)
[2022-10-18] MEDS: ENSURE ENLIVE 237 ML LIQUID (VANILLA) PO SCH ×2 (08:07→16:14)
[2022-10-18] MEDS: DEXAMETHASONE SOD PHOSPHATE 4 MG/ML VIAL IV SCH (08:07)
[2022-10-18] MEDS: CIPROFLOXACIN 0.3% OT SCH ×2 (08:07→16:14)
[2022-10-18 16:00] VITALS: BP 115/60
[2022-10-18 20:00] VITALS: BP 107/64
[2022-10-18] MEDS: LEVOFLOXACIN (250MG) 250 MG TABLET PO SCH (21:09)
[2022-10-18] MEDS: LINEZOLID 600 MG TABLET PO SCH (21:09)
[2022-10-18] MEDS: AMIKACIN 750 MG in IV D5W 100 ML IV SCH (21:09)
[2022-10-19 04:00] VITALS: BP 103/63
[2022-10-19 07:17] LABS: CALCIUM, SERUM 8.7 mg/dL (8.5-10.1); CREATININE 0.7 mg/dL (0.6-1.3); POTASSIUM 4.1 mmol/L (3.5-5.1)
[2022-10-19 08:00] VITALS: BP 107/68
[2022-10-19] MEDS: PYRIDOXINE HCL 50 MG TABLET PO SCH (08:49)
[2022-10-19] MEDS: DEXAMETHASONE SOD PHOSPHATE 4 MG/ML VIAL IV SCH (08:49)
[2022-10-19] MEDS: ETHAMBUTOL HCL (400 MG) 400 MG TABLET PO SCH (08:49)
[2022-10-19] MEDS: ENSURE ENLIVE 237 ML LIQUID (VANILLA) PO SCH ×2 (08:51→16:24)
[2022-10-19] MEDS: PANTOPRAZOLE 40 MG TABLET.DR PO SCH (08:51)
[2022-10-19] MEDS: CIPROFLOXACIN 0.3% OT SCH ×2 (08:51→16:24)
[2022-10-19 11:53] LABS: ALBUMIN 2.6 g/dL (3.4-5.0); BILIRUBIN,DIRECT 0.1 mg/dL (0.0-0.2); BILIRUBIN,TOTAL 0.3 mg/dL (0.2-1.0); TOTAL PROTEIN, SERUM 6.2 g/dL (6.4-8.2)
[2022-10-19 16:00] VITALS: BP 123/77
[2022-10-19 20:00] VITALS: BP 106/64
[2022-10-19] MEDS: AMIKACIN 750 MG in IV D5W 100 ML IV SCH (20:52)
[2022-10-19] MEDS: LINEZOLID 600 MG TABLET PO SCH (20:52)
[2022-10-19] MEDS: LEVOFLOXACIN (250MG) 250 MG TABLET PO SCH (20:52)
[2022-10-20 04:00] VITALS: BP 110/64
[2022-10-20 07:36] LABS: CALCIUM, SERUM 8.3 mg/dL (8.5-10.1); CREATININE 0.6 mg/dL (0.6-1.3); POTASSIUM 3.6 mmol/L (3.5-5.1)
[2022-10-20 08:00] VITALS: BP 113/76
[2022-10-20] MEDS: DEXAMETHASONE SOD PHOSPHATE 4 MG/ML VIAL IV SCH (08:40)
[2022-10-20] MEDS: ENSURE ENLIVE 237 ML LIQUID (VANILLA) PO SCH ×2 (08:41→16:06)
[2022-10-20] MEDS: PYRIDOXINE HCL 50 MG TABLET PO SCH (08:42)
[2022-10-20] MEDS: PANTOPRAZOLE 40 MG TABLET.DR PO SCH (08:42)
[2022-10-20] MEDS: CIPROFLOXACIN 0.3% OT SCH (08:42)
[2022-10-20] MEDS: ETHAMBUTOL HCL (400 MG) 400 MG TABLET PO SCH (08:42)
[2022-10-20 16:00] VITALS: BP 105/59
[2022-10-20 20:00] VITALS: BP 108/59
[2022-10-20] MEDS: AMIKACIN 750 MG in IV D5W 100 ML IV SCH (21:26)
[2022-10-20] MEDS: LINEZOLID 600 MG TABLET PO SCH (21:27)
[2022-10-20] MEDS: LEVOFLOXACIN (250MG) 250 MG TABLET PO SCH (21:27)
[2022-10-21 04:00] VITALS: BP 110/60
[2022-10-21 07:25] LABS: CALCIUM, SERUM 8.4 mg/dL (8.5-10.1); CREATININE 0.6 mg/dL (0.6-1.3); POTASSIUM 3.7 mmol/L (3.5-5.1)
[2022-10-21 08:00] VITALS: BP 117/73
[2022-10-21] MEDS: ENSURE ENLIVE 237 ML LIQUID (VANILLA) PO SCH ×2 (08:22→16:47)
[2022-10-21] MEDS: PYRIDOXINE HCL 50 MG TABLET PO SCH (08:23)
[2022-10-21] MEDS: PANTOPRAZOLE 40 MG TABLET.DR PO SCH (08:23)
[2022-10-21] MEDS: ETHAMBUTOL HCL (400 MG) 400 MG TABLET PO SCH (08:23)
[2022-10-21] MEDS: DEXAMETHASONE SOD PHOSPHATE 4 MG/ML VIAL IV SCH (08:24)
[2022-10-21 16:00] VITALS: BP 121/71
[2022-10-21 20:00] VITALS: BP 108/59
[2022-10-21] MEDS: AMIKACIN 750 MG in IV D5W 100 ML IV SCH (21:24)
[2022-10-21] MEDS: LINEZOLID 600 MG TABLET PO SCH (21:25)
[2022-10-21] MEDS: LEVOFLOXACIN (250MG) 250 MG TABLET PO SCH (21:25)
[2022-10-22 04:00] VITALS: BP 106/60
[2022-10-22 08:00] VITALS: BP 104/61
[2022-10-22 08:04] LABS: CALCIUM, SERUM 8.2 mg/dL (8.5-10.1); CREATININE 0.6 mg/dL (0.6-1.3); POTASSIUM 3.3 mmol/L (3.5-5.1)
[2022-10-22] MEDS: ENSURE ENLIVE 237 ML LIQUID (VANILLA) PO SCH ×2 (08:10→16:50)
[2022-10-22] MEDS: PYRIDOXINE HCL 50 MG TABLET PO SCH (09:13)
[2022-10-22] MEDS: ETHAMBUTOL HCL (400 MG) 400 MG TABLET PO SCH (09:13)
[2022-10-22] MEDS: PANTOPRAZOLE 40 MG TABLET.DR PO SCH (09:13)
[2022-10-22] MEDS: DEXAMETHASONE SOD PHOSPHATE 4 MG/ML VIAL IV SCH (09:15)
[2022-10-22] MEDS ORDERED: POTASSIUM CHLORIDE 20 MEQ TAB.PRT.SR PO ONE ×2 (11:00→13:00)
[2022-10-22 12:26] LABS: ALBUMIN 2.7 g/dL (3.4-5.0); BILIRUBIN,DIRECT 0.1 mg/dL (0.0-0.2); BILIRUBIN,TOTAL 0.2 mg/dL (0.2-1.0); TOTAL PROTEIN, SERUM 6.1 g/dL (6.4-8.2)
[2022-10-22 16:00] VITALS: BP 111/68
[2022-10-22 20:00] VITALS: BP 116/73
[2022-10-22] MEDS: LEVOFLOXACIN (250MG) 250 MG TABLET PO SCH (21:01)
[2022-10-22] MEDS: LINEZOLID 600 MG TABLET PO SCH (21:01)
[2022-10-22] MEDS: AMIKACIN 750 MG in IV D5W 100 ML IV SCH (21:25)
[2022-10-23 04:00] VITALS: BP 108/70
[2022-10-23 07:06] LABS: CALCIUM, SERUM 8.7 mg/dL (8.5-10.1); CREATININE 0.7 mg/dL (0.6-1.3); POTASSIUM 3.5 mmol/L (3.5-5.1)
[2022-10-23] MEDS: ENSURE ENLIVE 237 ML LIQUID (VANILLA) PO SCH ×2 (07:34→16:59)
[2022-10-23] MEDS: PANTOPRAZOLE 40 MG TABLET.DR PO SCH (07:43)
[2022-10-23 08:00] VITALS: BP 125/60
[2022-10-23] MEDS: DEXAMETHASONE SOD PHOSPHATE 4 MG/ML VIAL IV SCH (08:35)
[2022-10-23] MEDS: PYRIDOXINE HCL 50 MG TABLET PO SCH (08:36)
[2022-10-23] MEDS: ETHAMBUTOL HCL (400 MG) 400 MG TABLET PO SCH (08:36)
[2022-10-23 16:00] VITALS: BP 118/68
[2022-10-23 20:00] VITALS: BP 123/77
[2022-10-23] MEDS: LEVOFLOXACIN (250MG) 250 MG TABLET PO SCH (21:02)
[2022-10-23] MEDS: LINEZOLID 600 MG TABLET PO SCH (21:02)
[2022-10-23] MEDS: AMIKACIN 750 MG in IV D5W 100 ML IV SCH (21:35)
[2022-10-24 04:00] VITALS: BP 113/70
[2022-10-24 07:31] LABS: CALCIUM, SERUM 8.3 mg/dL (8.5-10.1); CREATININE 0.7 mg/dL (0.6-1.3)
[2022-10-24] MEDS: PANTOPRAZOLE 40 MG TABLET.DR PO SCH (07:37)
[2022-10-24 08:00] VITALS: BP 114/61
[2022-10-24] MEDS: ENSURE ENLIVE 237 ML LIQUID (VANILLA) PO SCH ×2 (08:04→16:07)
[2022-10-24] MEDS: DEXAMETHASONE SOD PHOSPHATE 4 MG/ML VIAL IV SCH (08:44)
[2022-10-24] MEDS: ETHAMBUTOL HCL (400 MG) 400 MG TABLET PO SCH (08:46)
[2022-10-24] MEDS: PYRIDOXINE HCL 50 MG TABLET PO SCH (08:50)
[2022-10-24] MEDS: ACETAMINOPHEN 325 MG TABLET PO PRN (12:49)
[2022-10-24 16:00] VITALS: BP 106/65
[2022-10-24 20:00] VITALS: BP 122/66
[2022-10-24] MEDS: LEVOFLOXACIN (250MG) 250 MG TABLET PO SCH (20:27)
[2022-10-24] MEDS: LINEZOLID 600 MG TABLET PO SCH (20:27)
[2022-10-24] MEDS: AMIKACIN 750 MG in IV D5W 100 ML IV SCH (21:37)
[2022-10-25 04:00] VITALS: BP 125/68
[2022-10-25] MEDS: PANTOPRAZOLE 40 MG TABLET.DR PO SCH (07:11)
[2022-10-25] MEDS: ENSURE ENLIVE 237 ML LIQUID (VANILLA) PO SCH ×2 (07:39→16:33)
[2022-10-25 08:00] VITALS: BP 125/60
[2022-10-25] MEDS: PYRIDOXINE HCL 50 MG TABLET PO SCH (08:07)
[2022-10-25] MEDS: ETHAMBUTOL HCL (400 MG) 400 MG TABLET PO SCH (08:07)
[2022-10-25] MEDS: DEXAMETHASONE SOD PHOSPHATE 4 MG/ML VIAL IV SCH (08:08)
[2022-10-25 08:33] LABS: CALCIUM, SERUM 9.1 mg/dL (8.5-10.1); CREATININE 0.7 mg/dL (0.6-1.3)
[2022-10-25 14:00] VITALS: BP 115/68
[2022-10-25 16:00] VITALS: BP 115/68
[2022-10-25 20:00] VITALS: BP 105/65
[2022-10-25] MEDS: AMIKACIN 750 MG in IV D5W 100 ML IV SCH (21:12)
[2022-10-25] MEDS: LINEZOLID 600 MG TABLET PO SCH (21:17)
[2022-10-25] MEDS: LEVOFLOXACIN (250MG) 250 MG TABLET PO SCH (21:17)
[2022-10-26 04:00] VITALS: BP 103/75
[2022-10-26 07:14] LABS: CALCIUM, SERUM 8.6 mg/dL (8.5-10.1); CREATININE 0.6 mg/dL (0.6-1.3); POTASSIUM 4.2 mmol/L (3.5-5.1)
[2022-10-26] MEDS: PANTOPRAZOLE 40 MG TABLET.DR PO SCH (07:26)
[2022-10-26] MEDS: ENSURE ENLIVE 237 ML LIQUID (VANILLA) PO SCH ×2 (07:26→16:16)
[2022-10-26 08:00] VITALS: BP 99/62
[2022-10-26] MEDS: DEXAMETHASONE SOD PHOSPHATE 4 MG/ML VIAL IV SCH (08:12)
[2022-10-26] MEDS: PYRIDOXINE HCL 50 MG TABLET PO SCH (08:12)
[2022-10-26] MEDS: ETHAMBUTOL HCL (400 MG) 400 MG TABLET PO SCH (08:12)
[2022-10-26 11:35] LABS: ALBUMIN 3.3 g/dL (3.4-5.0); BILIRUBIN,DIRECT 0.1 mg/dL (0.0-0.2); BILIRUBIN,TOTAL 0.3 mg/dL (0.2-1.0); TOTAL PROTEIN, SERUM 7.2 g/dL (6.4-8.2)
[2022-10-26 16:00] VITALS: BP 105/60
[2022-10-26 20:00] VITALS: BP 117/68
[2022-10-26] MEDS: LINEZOLID 600 MG TABLET PO SCH (20:26)
[2022-10-26] MEDS: LEVOFLOXACIN (250MG) 250 MG TABLET PO SCH (20:27)
[2022-10-26] MEDS: AMIKACIN 750 MG in IV D5W 100 ML IV SCH (22:45)
[2022-10-27 04:32] VITALS: BP 101/65
[2022-10-27 05:55] LABS: CALCIUM, SERUM 8.4 mg/dL (8.5-10.1); CREATININE 0.7 mg/dL (0.6-1.3); POTASSIUM 3.9 mmol/L (3.5-5.1)
[2022-10-27] MEDS: ENSURE ENLIVE 237 ML LIQUID (VANILLA) PO SCH ×2 (07:57→17:15)
[2022-10-27 08:00] VITALS: BP 99/56
[2022-10-27] MEDS: DEXAMETHASONE SOD PHOSPHATE 4 MG/ML VIAL IV SCH (08:11)
[2022-10-27] MEDS: ETHAMBUTOL HCL (400 MG) 400 MG TABLET PO SCH (08:12)
[2022-10-27] MEDS: PYRIDOXINE HCL 50 MG TABLET PO SCH (08:12)
[2022-10-27] MEDS: PANTOPRAZOLE 40 MG TABLET.DR PO SCH (08:12)
[2022-10-27 16:00] VITALS: BP 103/59
[2022-10-27 20:00] VITALS: BP 111/56
[2022-10-27] MEDS: LEVOFLOXACIN (250MG) 250 MG TABLET PO SCH (21:23)
[2022-10-27] MEDS: LINEZOLID 600 MG TABLET PO SCH (21:23)
[2022-10-27] MEDS: AMIKACIN 750 MG in IV D5W 100 ML IV SCH (21:30)
[2022-10-28 04:00] VITALS: BP 92/50
[2022-10-28 06:53] LABS: BASOPHILS % (AUTO) 0.5 % (0.0-2.0); EOSINOPHILS % (AUTO) 3.3 % (0.0-6.0); HEMATOCRIT 34 % (39-51); LYMPHOCYTES # (AUTO) 0.6 K/uL (0.8-4.8); LYMPHOCYTES % (AUTO) 14.2 % (20.0-44.0); MEAN CORPUSCULAR HGB CONC 32 g/dl (31.0-36.0); MEAN CORPUSCULAR VOLUME 82 fL (80-96); MONOCYTES # (AUTO) 0.7 K/uL (0.1-1.30); MONOCYTES % (AUTO) 15.8 % (2.0-12.0); NEUTROPHILS % (AUTO) 66.2 % (43.0-81.0); PLATELET COUNT (AUTO) 269 K/uL (150-450); RED BLOOD CELL COUNT(AUTO) 4.15 MIL/uL (4.5-6.0); WHITE BLOOD COUNT (AUTO) 4.6 K/uL (4.3-11.0)
[2022-10-28 07:09] LABS: CALCIUM, SERUM 8.7 mg/dL (8.5-10.1); CREATININE 0.6 mg/dL (0.6-1.3); POTASSIUM 3.8 mmol/L (3.5-5.1)
[2022-10-28 07:24] LABS: ALBUMIN 2.6 g/dL (3.4-5.0); BILIRUBIN,DIRECT 0.1 mg/dL (0.0-0.2); BILIRUBIN,TOTAL 0.3 mg/dL (0.2-1.0)
[2022-10-28 08:00] VITALS: BP 117/68
[2022-10-28] MEDS: PANTOPRAZOLE 40 MG TABLET.DR PO SCH (08:38)
[2022-10-28] MEDS: PYRIDOXINE HCL 50 MG TABLET PO SCH (08:38)
[2022-10-28] MEDS: ETHAMBUTOL HCL (400 MG) 400 MG TABLET PO SCH (08:39)
[2022-10-28] MEDS: DEXAMETHASONE SOD PHOSPHATE 4 MG/ML VIAL IV SCH (08:44)
[2022-10-28] MEDS: ENSURE ENLIVE 237 ML LIQUID (VANILLA) PO SCH ×2 (08:44→17:03)
[2022-10-28 16:00] VITALS: BP 129/75
[2022-10-28 20:00] VITALS: BP 120/67
[2022-10-28] MEDS: LINEZOLID 600 MG TABLET PO SCH (20:30)
[2022-10-28] MEDS: LEVOFLOXACIN (250MG) 250 MG TABLET PO SCH (20:30)
[2022-10-28] MEDS: AMIKACIN 750 MG in IV D5W 100 ML IV SCH (21:54)
[2022-10-29 04:00] VITALS: BP 105/70
[2022-10-29 07:08] LABS: CALCIUM, SERUM 8.8 mg/dL (8.5-10.1); CREATININE 0.7 mg/dL (0.6-1.3)
[2022-10-29] MEDS: PANTOPRAZOLE 40 MG TABLET.DR PO SCH (07:56)
[2022-10-29 08:00] VITALS: BP 98/62
[2022-10-29] MEDS: DEXAMETHASONE SOD PHOSPHATE 4 MG/ML VIAL IV SCH (08:40)
[2022-10-29] MEDS: ETHAMBUTOL HCL (400 MG) 400 MG TABLET PO SCH (08:40)
[2022-10-29] MEDS: PYRIDOXINE HCL 50 MG TABLET PO SCH (08:40)
[2022-10-29] MEDS: ENSURE ENLIVE 237 ML LIQUID (VANILLA) PO SCH ×2 (08:43→18:29)
[2022-10-29 09:14] LABS: ALBUMIN 2.9 g/dL (3.4-5.0); BILIRUBIN,DIRECT 0.1 mg/dL (0.0-0.2); BILIRUBIN,TOTAL 0.2 mg/dL (0.2-1.0); TOTAL PROTEIN, SERUM 6.4 g/dL (6.4-8.2)
[2022-10-29] MEDS ORDERED: RIFAMPIN 300 MG CAPSULE PO SCH (11:03)
[2022-10-29] MEDS ORDERED: RIFA300C4 PO ×2 (12:27→12:51)
[2022-10-29] MEDS ORDERED: LEVO750T46 PO ×2 (12:29→12:51)
[2022-10-29] MEDS ORDERED: ETHA100T13 PO ×2 (12:29→12:51)
[2022-10-29] MEDS ORDERED: LINE600T13 PO ×2 (12:30→12:51)
[2022-10-29] MEDS ORDERED: PYRI50TA15 PO ×2 (12:30→12:51)
[2022-10-29] MEDS ORDERED: DEXA1TAB2 PO ×3 (12:31→12:51)
[2022-10-29 16:00] VITALS: BP 115/56
[2022-10-30] MEDS ORDERED: DEXAMETHASONE 4 MG TABLET PO SCH (09:00)
[2022-10-30] MEDS ORDERED: DEXAMETHASONE SOD PHOSPHATE 4 MG/ML VIAL IV SCH (09:00)
== END 2022-10-29 19:05 | disposition home or self-care (01) | DRG 720 ==
LOC: ER 10:49 → TELE 16:39 → TELE1 19:09 → MEDSG1 09-28 06:21
PROVIDERS: ADMIT Nurse Practitioner Acute Care; ATTEND Nurse Practitioner Acute Care
PROC: 009U3ZX Drainage of Spinal Canal, Percutaneous Approach, Diagnostic (ICD-10-PCS; principal; 2022-10-02)
PROC: B01BYZZ Fluoroscopy of Spinal Cord using Other Contrast (ICD-10-PCS; 2022-10-02)
DX: A41.9 Sepsis, unspecified organism (principal); J96.01 Acute respiratory failure with hypoxia; G00.9 Bacterial meningitis, unspecified; I31.39 Other pericardial effusion (noninflammatory); E44.0 Moderate protein-calorie malnutrition; J15.9 Unspecified bacterial pneumonia; E87.1 Hypo-osmolality and hyponatremia; D63.8 Anemia in other chronic diseases classified elsewhere; E11.22 Type 2 diabetes mellitus with diabetic chronic kidney disease; E88.09 Other disorders of plasma-protein metabolism, not elsewhere classified; A15.8 Other respiratory tuberculosis; D72.810 Lymphocytopenia; I50.9 Heart failure, unspecified; J44.0 Chronic obstructive pulmonary disease with (acute) lower respiratory infection; J44.1 Chronic obstructive pulmonary disease with (acute) exacerbation; K21.9 Gastro-esophageal reflux disease without esophagitis; N18.9 Chronic kidney disease, unspecified; E87.6 Hypokalemia; F03.90 Unspecified dementia, unspecified severity, without behavioral disturbance, psychotic disturbance, mood disturbance, and anxiety; F15.11 Other stimulant abuse, in remission; F17.210 Nicotine dependence, cigarettes, uncomplicated; F20.9 Schizophrenia, unspecified; H60.92 Unspecified otitis externa, left ear; H91.92 Unspecified hearing loss, left ear; Z20.822 Contact with and (suspected) exposure to COVID-19
CPT/HCPCS: 36415; 62270; 70553-TC; 71045-TC; 71250-TC; 80048-TC; 80053-TC; 80076-TC; 80150; 80202-TC; 81001; 82728-TC; 83540-TC; 83605-TC; 83690-TC; 83735-TC; 84100-TC; 84132-TC; 84295-TC; 84300-TC; 84484-TC; 84550-TC; 85025-TC; 85610-TC; 86480; 86592; 86694; 87040-TC; 87116; 87206; 87536; 87806; 87899; 89051-TC; 93307-TC; A4223; A9575; C9803; G0378; G0480; J0133; J0278; J0456; J0696; J1100; J3370; J3490; J7030; J7040; J7050; J7060